=== PATIENT | female | born 1990 | race Caucasian/White ===

== ENCOUNTER → 2018-04-17 | Day surgery (SDC) | payer OTHER ==
[~2018-04-17] VITALS: Ht 165.1 cm; Wt 59.0 kg
[2018-04-17 10:36] LABS: ABSOLUTE BASOPHIL COUNT 0 /CUMM (0.0-0.2); ABSOLUTE EOSINOPHIL COUNT 0 /CUMM (0.0-0.7); ABSOLUTE GRANULOCYTE CT 3.9 /CUMM (1.4-6.5); ABSOLUTE LYMPH COUNT 1.1 /CUMM (1.2-3.4); ABSOLUTE MONOCYTE COUNT 0.4 /CUMM (0.10-0.60); BASOPHIL % 0.4 % (0.0-2.0); EOSINOPHIL % 0.3 % (0-5); GRANULOCYTE % 71.1 % (42.2-75.2); HEMATOCRIT 35.1 % (37-47); MEAN CORPUSCULAR HGB CONC 34.1 G/DL (33.0-37.0); MEAN CORPUSCULAR VOLUME 84.9 FL (81.0-99.0); MEAN PLATELET VOLUME 8.7 FL (7.4-10.4); PLATELET COUNT 244 /CUMM (130-400); RBC DISTRIBUTION WIDTH 12.2 % (11.5-14.5); RED BLOOD CELL CT 4.13 /CUMM (4.20-5.40); WHITE BLOOD CELL COUNT 5.4 /CUMM (4.8-10.8)
--- NOTE | 2018-04-17 15:07 | Operative Report ---
Operative/Inv Procedure Report Surgery Date: 04/17/18 Name of Procedure: Suction dilation and curettage Pre-Operative Diagnosis: Undesired Post-Operative Diagnosis: Same Estimated Blood Loss: less than 50ml Surgeon/Student Counselor: Samuel Parnell MD Anesthesia: moderate sedation, block Specimens: Products of conception Complications: None Condition: Stable Operative/Procedure Note Note: The patient was taken to the operating room and placed in the supine position. Anesthesia was obtained without difficulty. She was then placed in dorsal lithotomy position and prepped and draped in the usual sterile fashion. A sterile speculum was then placed in the patient's vagina. A single-tooth tenaculum was applied to the anterior lip of the cervix. 10 cc of 1% lidocaine were then used to obtain a paracervical block. The cervix was then serially dilated to accommodate a 9 mm suction curette. Suction curette was inserted to the fundus and attached to the suction tubing. The suction device was then activated and the curette rotated to clear the uterus of the products of conception. 3 passes with the suction curette were performed. The curette was then removed and gentle sharp curettage was performed. A gritty texture was noted in all 4 quadrants. The suction curette was then reinserted and activated to clear the uterus of remaining clot and debris. All instruments were then removed from the patient's vagina. Excellent hemostasis was noted. All counts were reported to be correct 2. The patient was taken to the recovery room in stable condition. A moderate amount of products of conception were sent to pathology. Discharge Disposition: Same Day Admissions
== END ==
LOC: STS 02:11
PROVIDERS: Obstetrics & Gynecology
DX: Z33.2 Encounter for elective termination of pregnancy (principal)
CPT/HCPCS: 36415; J2001; J2250